=== PATIENT | female | born 1995 | race Caucasian/White ===

== ENCOUNTER → 2017-10-21 | Outpatient (CLI) | payer BC ==
--- NOTE | 2017-10-22 08:26 | RADIOLOGY REPORT (SQ) ---
EXAM DESCRIPTION: ANKLE RIGHT COMPLETE; FOOT RIGHT COMPLETE COMPLETED DATE/TIME: 10/21/2017 8:42 pm REASON FOR STUDY: INJURY OF RIGHT ANKLE, RIGHT FOOT, INITIAL ENCOUNTER COMPARISON: None. FINDINGS: Three views right ankle: Normal bone density. No fracture. Mortise maintained. Mild so ft tissue swelling. No radiopaque foreign body. Three views right foot: Normal bone density. No other bone, joint or soft tissue abnormality apprec iated. IMPRESSION: No fracture evident. Soft tissue swelling. TECHNICAL DOCUMENTATION: JOB ID: [id number]
== END ==
LOC: RAD 19:52
PROVIDERS: ATTEND Nurse Practitioner Family
DX: S99.921A Unspecified injury of right foot, initial encounter (principal); S99.911A Unspecified injury of right ankle, initial encounter; X58.XXXA Exposure to other specified factors, initial encounter; Y93.9 Activity, unspecified; Y92.9 Unspecified place or not applicable; Y99.9 Unspecified external cause status

== ENCOUNTER 2018-04-27 02:36 | Emergency (ER) | payer OTHER ==
[2018-04-27] MEDS ORDERED: ACETAMINOPHEN 325 MG TABLET PO ONE (02:53)
[2018-04-27] MEDS ORDERED: NORMAL SALINE 1000 ML 1,000 ML IV ONE (03:08)
[2018-04-27] MEDS ORDERED: ONDANSETRON 4 MG TAB.RAPDIS PO ONE (03:16)
[2018-04-27] MEDS ORDERED: ONDANSETRON 4 MG TAB.RAPDIS ONE (03:18)
[2018-04-27 03:53] LABS: ABSOLUTE LYMPHOCYTES (AUTO) 0.5 10^3/uL (0.5-4.7); ABSOLUTE MONOCYTES (AUTO) 0.5 10^3/uL (0.1-1.4); ABSOLUTE NEUT (AUTO) 6.3 10^3/uL (1.7-8.2); BASOPHILS % (AUTO) 0.1 % (0-2); HEMATOCRIT 36.8 % (36.0-47.0); HEMOGLOBIN 12.6 g/dL (12.0-15.5); LYMPHOCYTES % (AUTO) 6.2 % (13-45); MEAN CORPUSCULAR HEMOGLOBIN 30.3 pg (27.0-33.4); MEAN CORPUSCULAR HGB CONC 34.3 g/dL (32.0-36.0); MEAN CORPUSCULAR VOLUME 88 fl (80-97); MONOCYTES % (AUTO) 7.4 % (3-13); PLATELET COUNT 239 10^3/uL (150-450); RED BLOOD COUNT 4.16 10^6/uL (3.72-5.28); RED CELL DISTRIBUTION WIDTH 12.4 % (11.5-14.0); SEGMENTED NEUTROPHILS % (AUTO) 86.3 % (42-78); TOTAL CELLS COUNTED % (AUTO) 100 %; WHITE BLOOD COUNT 7.3 10^3/uL (4.0-10.5)
[2018-04-27 04:09] LABS: ALANINE AMINOTRANSFERASE 40 U/L (9-52); ALBUMIN 4.3 g/dL (3.5-5.0); ALKALINE PHOSPHATASE 76 U/L (38-126); ANION GAP 15 (5-19); ASPARTATE AMINO TRANSFERASE 25 U/L (14-36); BILIRUBIN,DIRECT 0.3 mg/dL (0.0-0.4); BILIRUBIN,TOTAL 0.3 mg/dL (0.2-1.3); BLOOD UREA NITROGEN 8 mg/dL (7-20); CALCIUM 9.3 mg/dL (8.4-10.2); CARBON DIOXIDE 22 mmol/L (22-30); CHLORIDE 105 mmol/L (98-107); GLUCOSE 109 mg/dL (75-110); LIPASE 40.1 U/L (23-300); POTASSIUM 3.9 mmol/L (3.6-5.0); SODIUM 141.6 mmol/L (137-145); TOTAL PROTEIN 7.8 g/dL (6.3-8.2)
[2018-04-27] MEDS ORDERED: KETOROLAC TROMETHAMINE INJ/PF 30 MG/1 ML SDV IV ONE (05:03)
[2018-04-27] MEDS ORDERED: DEXAMETHASONE SOD PHOS INJ 10 MG/1 ML VIAL IV ONE (05:03)
--- NOTE | 2018-04-27 05:04 | ER Document Report ---
ED General - General Chief Complaint: Fever Stated Complaint: FEVER,VOMITING,HEADACHE,ABDOMINAL PAIN Time Seen by Provider: 04/27/18 04:55 Notes: Patient is a 22-year-old female that comes emergency department for chief complaint of sore throat that started yesterday, she developed shaking chills, fever, headaches with fever, and she also threw up twice earlier today. Generalized abdominal soreness after vomiting but no specific abdominal tenderness. Headache resolved with fever treatment. No cough, shortness of breath, dysuria, flank pain. No obvious sick contacts. No daily medications. Only past medical history reported is appendectomy. TRAVEL OUTSIDE OF THE [place] IN LAST 30 DAYS: No - Related Data Allergies/Adverse Reactions: amoxicillin [Amoxicillin] Allergy (Intermediate, Verified 12/18/11 17:58) sick Past Medical History - General Information source: Patient - Social History Smoking Status: Never Smoker Frequency of alcohol use: None Drug Abuse: None Lives with: Family Family History: Reviewed & Not Pertinent Pulmonary Medical History: Reports: Hx Pneumonia Denies: Hx Tuberculosis Neurological Medical History: Denies: Hx Seizures Past Surgical History: Reports: Hx Appendectomy. Denies: Hx Pacemaker - Immunizations Immunizations up to date: Yes Hx Diphtheria, Pertussis, Tetanus Vaccination: Yes Review of Systems - Review of Systems Constitutional: See HPI EENT: See HPI Cardiovascular: No symptoms reported Respiratory: No symptoms reported Gastrointestinal: See HPI Genitourinary: No symptoms reported Female Genitourinary: No symptoms reported Musculoskeletal: No symptoms reported Skin: No symptoms reported Hematologic/Lymphatic: No symptoms reported Neurological/Psychological: See HPI Physical Exam - Vital signs Vitals: Temp Pulse Resp BP Pulse Ox 102.8 F H 115 H 17 131/79 H 97 04/27/18 02:50 04/27/18 02:50 04/27/18 02:50 04/27/18 02:50 04/27/18 02:50 - Notes Notes: GENERAL: Alert, interacts well. No acute distress. HEAD: Normocephalic, atraumatic. EYES: Pupils equal, round, and reactive to light. Extraocular movements intact. ENT: Oral mucosa moist, tongue midline. Exudative pharyngitis, normal uvula, no evidence of peritonsillar abscess. Normal ear and sinus exam, normal nasal exam. NECK: Full range of motion. Supple. Trachea midline. Bilateral anterior cervical adenopathy LUNGS: Clear to auscultation bilaterally, no wheezes, rales, or rhonchi. No respiratory distress. HEART: Regular rate and rhythm. No murmur ABDOMEN: Soft, non-tender. Non-distended. Bowel sounds present in all 4 quadrants. EXTREMITIES: Moves all 4 extremities spontaneously. No edema, normal radial and dorsalis pedis pulses bilaterally. No cyanosis. BACK: no cervical, thoracic, lumbar midline tenderness. No saddle anesthesia, normal distal neurovascular exam. NEUROLOGICAL: Alert and oriented x3. Normal speech. [cranial nerves II through XII grossly intact]. PSYCH: Normal affect, normal mood. SKIN: Warm, dry, normal turgor. No rashes or lesions noted. Course - Re-evaluation Re-evalutation: Patient states she is allergic to amoxicillin because it "made her symptoms worse" with an illness in the past, she has taken penicillin without any difficulty. Physical examination shows exudative pharyngitis, anterior cervical adenopathy, patient febrile, no cough. She meets criteria for strep throat. Strep test is surprisingly negative but I suspect this is a false negative. No splenomegaly. No nuchal rigidity. Headache resolved. Discussed with patient. Decision was made to treat with dexamethasone, penicillin G. Patient was given fluids, Toradol, on reevaluation vital signs normalized, patient is very well-appearing , denies any current complaints. Discussed the possibility of mono and precautions with this as well, discussed with father at bedside, discussed follow-up and return precautions. They state understanding and agreement. - Vital Signs Vital signs: Temp Pulse Resp BP Pulse Ox 102.8 F H 115 H 17 131/79 H 97 04/27/18 02:50 04/27/18 02:50 04/27/18 02:50 04/27/18 02:50 04/27/18 02:50 - Laboratory Result Diagrams: 04/27/18 03:25 04/27/18 03:25 Laboratory results interpreted by me: 04/27/18 03:25 Seg Neutrophils % 86.3 H Lymphocytes % 6.2 L Discharge - Discharge Clinical Impression: Exudative pharyngitis, Lymphadenopathy Fever Qualifiers: Fever type: unspecified Qualified Code(s): R50.9 - Fever, unspecified Condition: Stable Disposition: HOME, SELF-CARE Additional Instructions: Your examination and symptoms meet the criteria for strep throat. You have been treated for this. There is a possibility that you have a viral illness however, including mononucleosis. This can last for several days longer or around a week usually. Treat fever with Tylenol or ibuprofen, rest, drink plenty fluids. Follow-up with primary care. Return to the emergency department for any concerning symptoms including difficulty swallowing or breathing, spiking fever, severe abdominal pain, or any other concerning symptoms. Forms: Return to Work, Parent Work Note Referrals: HILDA CLIFFORD MD [Primary Care Provider] - Follow up as needed
[2018-04-27 06:04] LABS: APPEARANCE,URINE SLIGHTLY-CLOUDY; BILIRUBIN,URINE NEGATIVE (NEGATIVE); COLOR,URINE YELLOW; GLUCOSE, URINE NEGATIVE (NEGATIVE); KETONES,URINE NEGATIVE (NEGATIVE); LEUKOCYTE ESTERASE,URINE NEGATIVE (NEGATIVE); NITRITE,URINE NEGATIVE (NEGATIVE); PROTEIN,URINE NEGATIVE (NEGATIVE); UROBILINOGEN,URINE NEGATIVE mg/dL (<2.0)
[2018-04-27] MEDS ORDERED: PENICILLIN G BENZATHINE 1.2 MILLION UNIT/2 ML DISP.SYRIN IM ONE (06:22)
[2018-04-27 06:51] VITALS: BP 117/60
== END 2018-04-27 06:51 | disposition home or self-care (01) ==
LOC: ER 02:36
DX: J02.9 Acute pharyngitis, unspecified (principal); R50.9 Fever, unspecified; R59.0 Localized enlarged lymph nodes; R51 Headache; R11.10 Vomiting, unspecified; Z90.49 Acquired absence of other specified parts of digestive tract; Z88.0 Allergy status to penicillin
CPT/HCPCS: 99284; 96372; 96361; 96374; 96375; 36415; 87040; 87070; 87880; 83690; 85025; 81025; 80053; 81001; S0119; J1885; J0561; J7030; J1100

== ENCOUNTER → 2019-02-20 | Outpatient (CLI) | payer OTHER | LOC: SP 12:29 | PROVIDERS: ATTEND Family Medicine | DX: R55 Syncope and collapse (principal) | CPT/HCPCS: 93225 ==